=== PATIENT | female | born 1985 | race Caucasian/White ===

== ENCOUNTER 2020-02-26 13:14 | Emergency (ER) | payer OTHER, SELFPAY ==
--- NOTE | 2020-02-26 13:33 | ED.GENADULT ---
HPI - General Adult General Chief complaint: Skin/Abscess/Foreign Body Stated complaint: insect bite Time Seen by Provider: 02/26/20 13:56 Source: patient Mode of arrival: ambulatory Limitations: no limitations History of Present Illness HPI narrative: 34-year-old female patient presents to the [facility] with complaints of possible spider bite to her buttock about 2 days ago. Patient states she felt a pinch on her buttock and states that her boyfriend saw a spider in the area at the same time. Patient states she has been doing some warm compresses as well as taking Tylenol and ibuprofen for the pain. Patient states she feels like the bite is getting bigger and continues to have pain. Patient states she thinks she ran about 100 Fahrenheit fever yesterday but denies any fevers today. Denies any chills or body aches. Related Data Allergies Allergy/AdvReac Type Severity Reaction Status Date / Time ceftriaxone [From Rocephin] Allergy Anaphylaxis Verified 02/26/20 14:03 Penicillins Allergy Anaphylaxis Verified 02/26/20 14:00 Review of Systems Review of Systems: Narrative: CONSTITUTIONAL: Denies fever, chills, or sweats. EYES: Denies visual changes, redness, or discharge. ENT: Denies rhinorrhea, congestion, sore throat, or otalgia. CARDIOVASCULAR: Denies chest pain, palpitations, or edema. RESPIRATORY: Denies cough or dyspnea. GASTROINTESTINAL: Denies abdominal pain, nausea, vomiting, or diarrhea. GENITOURINARY: Denies dysuria or hematuria. SKIN: Denies rash or itching. Positive bite to right buttock x2 days MUSCULOSKELETAL: Denies back pain, joint pain, or myalgia. NEUROLOGIC: Denies headache, numbness, or weakness. PSYCHIATRIC: Denies anxiety or depression. PMFSH Comments At the time of my signature I agree with nursing past medical history, surgical, social, and family history. There is no relevant family history pertinent to the presenting complaint. Exam Narrative: Exam Narrative: GENERAL: Well-appearing, well-nourished, and in no acute distress. HEAD: Normocephalic, atraumatic. EYES: PERRLA and EOMI. ENT: Nares clear, no rhinorrhea or epistaxis. Mucous membranes moist. NECK: Supple. No lymphadenopathy CHEST: Clear to auscultation. No respiratory distress. HEART: Regular rate and rhythm. No murmur heard. Normal peripheral pulses. ABDOMEN: Soft, nontender, nondistended, normal active bowel sounds. EXTREMITIES: Normal range of motion. No edema. SKIN: Warm, dry, no rash. Patient has what appears to be a spider bite to the right buttock. It does have some surrounding erythema which measures approximately 4.5 cm in circumference and the darken center measures approximately 2 cm in circumference. There is no open wounds or drainage noted. It is slightly warm to the touch as well as tender. NEURO: No focal deficits. Alert and oriented x3. Course Vital Signs Vital signs: Vital Signs Temperature 36.5 C 02/26/20 13:42 Pulse Rate 95 02/26/20 13:42 Respiratory Rate 18 02/26/20 13:42 Blood Pressure 116/77 02/26/20 13:42 Pulse Oximetry 100 02/26/20 13:42 Temperature 36.5 C 02/26/20 13:42 Pulse Rate 95 02/26/20 13:42 Respiratory Rate 18 02/26/20 13:42 Blood Pressure 116/77 02/26/20 13:42 Pulse Oximetry 100 02/26/20 13:42 Vital signs reviewed. Medical Decision Making Differential Diagnosis Differential Diagnosis: Differential diagnosis: Abscess, cellulitis, hidradenitis, laceration, puncture wound. Discussed with patient that it does appear that she got bit by something and therefore we will go ahead and discharge her home with some antibiotics just in case it is a spider bite. Discussed with her that she should continue doing the warm compresses to the area as well as taking Tylenol and ibuprofen for the pain. Recommended to patient that she try and use a marker or pain to outline the reddened area therefore she will know if the redness gets outside of this area that she has marked that it
[2020-02-26 13:42] VITALS: BP 116/77; PULSE 95; RESP 18; TEMP 36.5; O2SAT 100
== END 2020-02-26 14:04 | disposition home or self-care (01) ==
PROVIDERS: Emergency Provider Nurse Practitioner Family
DX: T63.301A Toxic effect of unspecified spider venom, accidental (unintentional), initial encounter (principal); J45.909 Unspecified asthma, uncomplicated
CPT/HCPCS: 99203; G0463